=== PATIENT | male | born 1970 | race African-American/Black ===

== ENCOUNTER 2022-06-30 17:17 | Emergency (ER) | payer MEDICAID, SELFPAY ==
--- NOTE | ~2022-06-30 | XR_ITS ---
EXAMINATION: XR CHEST CLINICAL INFORMATION: Fall onto chest. Chest pain. COMPARISON: None available. TECHNIQUE: Frontal view of the chest was obtained. FINDINGS: The lungs are well expanded. There is no focal consolidation, edema, or effusion. No pneumothorax. The cardiomediastinal silhouette is within normal limits. No acute osseous abnormality. XR/XR chest 1V IMPRESSION: No acute pulmonary disease. No displaced fractures are seen.
--- NOTE | ~2022-06-30 | CT_ITS ---
EXAMINATION: NONCONTRAST HEAD CT NONCONTRAST MAXILLOFACIAL CT NONCONTRAST CERVICAL SPINE CT INDICATION INFORMATION: Pain after fall, hitting head. Fall onto face. COMPARISON: None TECHNIQUE: Separate noncontrast CT examinations of the head, maxillofacial bones, and cervical spine were performed. Coronal and sagittal images were created for each examination at the technologist workstation. This CT examination was performed using dose optimization techniques as appropriate, variously including the following: *Automated exposure control *Adjustment of mA and/or kV according to patient size (this includes techniques or standardized protocols for targeted exams where dose is matched to indication/reason for exam; i.e. extremities or head) *Use of iterative reconstruction technique DLP: 1467 mGy-cm FINDINGS: Head: There is no evidence of acute intracranial hemorrhage or territorial infarction. No abnormal mass effect or midline shift is seen. Rodriguez to white matter differentiation is well preserved. No extra-axial fluid collections are identified. No hydrocephalus. Proportional prominence of the ventricles and sulcal spaces is consistent with mild volume loss. Patchy periventricular and deep white matter hypoattenuation is consistent with mild small vessel ischemic changes. Mild left supraorbital soft tissue swelling. No calvarial fracture. The mastoid air cells are well aerated. Maxillofacial: No acute maxillofacial fractures are seen. The pterygoid plates are intact. Lamina papyracea are intact. The zygomatic arches are intact. The nasal bone is intact. The orbital rims are intact. Moderate opacification of the right maxillary sinus. Mucous retention cyst in the left maxillary sinus. There are numerous dental caries with periapical lucency surrounding multiple teeth. Disruption of the alveolar ridge of the left aspect of the mandible associated with the premolars. There is also significant irregularity surrounding the bilateral maxillary molars. There is likely a sebaceous cyst in the subcutaneous tissues of the left base measuring 1.8 cm. The uncinate process is normal bilaterally. The infundibula and middle meati are patent. The nasal septum is midline. The mandibular heads are well-seated in the condylar fossa. The orbits demonstrate a normal appearance bilaterally. The globes are intact, and there are no suspicious findings to suggest retrobulbar hemorrhage. Cervical spine: There is anatomic alignment of the vertebral bodies and posterior elements. The atlantoaxial and atlantooccipital articulations are intact. Vertebral body heights are maintained. There is multilevel intervertebral disc space narrowing with endplate osteophyte formation and facet arthropathy. No evidence of acute fracture. No prevertebral soft tissue swelling. Visualized portions of the lung apices are unremarkable. The thyroid gland is unremarkable. CT/CT cervical spine wo IV con IMPRESSION: 1. No acute intracranial finding. 2. No acute fracture or malalignment of the cervical spine. Mild degenerative change. 3. No acute maxillofacial fracture. Extensive dental caries with periapical lucencies. Disruption of the alveolar ridge of the left aspect of the mandible associated with the premolars. Consider dental evaluation.
[2022-06-30 17:31] VITALS: BP 123/77; PULSE 90
--- NOTE | 2022-06-30 17:31 | ED_ITS ---
HPI - General Adult General Chief complaint: Fall Stated complaint: TRIP AND FALL Time Seen by Provider: 06/30/22 19:57 Source: patient Mode of arrival: ambulatory Limitations: other (intoxicated, uncooperative ) History of Present Illness HPI narrative: 51 year old male presents from EMS for evaluation of fall w/ a/c laceration to lips per EMS. However he tells me he is really here because he would like transport [place] , he doesnt want medical care. He tells me patient access told him if he came her we would just find him a ride home. Tells me he has had two beers all day. Tells me he was in this [place] to buy [place] boots and he tripped on the curb because his boots were too heavy fell hit his face, reports no LOC and was ambulatory after. Related Data Allergies Allergy/AdvReac Type Severity Reaction Status Date / Time acetaminophen [From Vicodin] Allergy Unknown Unknown Verified 06/30/22 17:23 hydrocodone [From Vicodin] Allergy Unknown Unknown Verified 06/30/22 17:23 ketamine Allergy Unknown UNNOWN Verified 06/30/22 17:23 midazolam Allergy UNKNOWN Unverified 06/30/22 17:23 Review of Systems Review of Systems: Constitutional : No Weight loss, No Fever, No Chills, No Fatigue, No Malaise ENT/Mouth : No sore throat, No Rhinorrhea Eyes: No Eye Pain, No Swelling, No Redness Cardiovascular : No Chest Pain, No SOB, No Dyspnea on Exertion, No Orthopnea, No Edema, No Palpitations Respiratory : No Cough, No Sputum, No Wheezing Gastrointestinal : No Nausea, No Vomiting, No Diarrhea, No Constipation, No abdominal Pain, No Hematochezia, No Melena Genitourinary : No Dysuria, No Urinary Frequency, No Hematuria, Musculoskeletal : No joint pain, No Myalgias, No Joint Swelling Skin : No Skin Lesions, No rash, + laceration on lip Neuro : No Weakness, No Numbness, No Dizziness, No Headache Psych : No Anxiety/Panic, No Depression All other systems reviewed and are negative Yes all other systems are reviewed and are negative [facility] Past Medical History Attestation statement: The following information was validated with the patient. Source: old records reviewed and nursing notes reviewed Social History Social History Advance Directives: No Advance Directives Information Provided: No Physical Exam ED Vital Signs: Vital Signs - 24 hr 06/30/22 17:32 06/30/22 23:02 Temperature 97.8 F 98 F Pulse Rate 92 85 Respiratory Rate 18 14 Blood Pressure 116/82 115/79 Pulse Oximetry 97 93 Oxygen Delivery Method Room Air Room Air BMI result Body Mass Index 25.8 vss Appearance: Alert.? Oriented X3.? No acute distress.? Head: Normocephalic, atraumatic, no step-offs or deformities Eyes: Pupils equal, round and reactive to light.? Mouth: Poor dentition throughout,1 cm laceration to both upper and lower lip. With swelling of the left lateral aspect of lip (appears to be healing) Neck: Normal inspection.? Neck supple.? CVS: Normal heart rate and rhythm.? Pulses normal.? Respiratory: No respiratory distress.? Breath sounds normal.? Abdomen: Soft and nontender.? Skin: Skin warm and dry.? Normal skin color.? Normal skin turgor.? Extremities: No lower extremity edema.? No calf ttp. 5/5 strength to bilateral upper and lower extremities Neuro: Oriented X 3.? No motor deficit.? No sensory deficit. CN 2-12 intact Course Reevaluation(s) Reevaluation #1: Patient adamantly refusing everything including sutures, laboratory studies, chest x-ray, head CT and CT of the neck and facial bones. Patient ambulating with steady gait. He continues to tell me that the only reason he is here is for us to give him transferred back to [place]. Patient uncooperative. Time: 18:23 Reevaluation #2: CBC hemolyzed. Patient refusing repeat labs. Chemistry unremarkable. UA without infection. Urine toxicology positive for benzodiazepines, marijuana. Ethanol level of 274. COVID negative. CT of the head with no acute intracranial findings. No acute fracture malalignment of the cervical spine. Degenerative changes noted. No acute maxillofacial fracture. Extensive dental caries with periapical lucencies. Disruption of the alveolar ridge of the left aspect of mandible associated with premolars. Patient should be seen by dentist. Time: 23:57 Reevaluation #3: Patient comfortably resting. Patient will be placed into observation to allow more time to be evaluated by the strength and conditioning coach is for alcohol use disorder. Patient was not making any suicidal or homicidal ideations. No need for Section 12. Will continue to monitor. Patient did refuse sutures. Time: 23:58 Medical Decision Making Medical Decision Making [facility] Narrative: [id number] 51-year-old male presents via ambulance requesting a ride back home, tells me he fell but does not want medical treatment. He did sustain a fall to his lip after fall. Tells me he is not on blood thinners however has been drinking today. Physical exam with1 cm laceration to both upper and lower lip. With swelling of the left lateral aspect of lip Concerns for possible intracranial hemorrhage, facial fractures, trauma to head/scalp. Will rule out electrolyte disturbances, dysrhythmia Will obtain ethanol level and urine toxicology Plan labs, imaging, EKG, urine. Differential Diagnosis Differential Diagnoses: The differential diagnosis associated with the presentation includes Concerns for possible intracranial hemorrhage, facial fractures, trauma to head/scalp. Will rule out electrolyte disturbances, dysrhythmia Will obtain ethanol level and urine toxicology Admission/Observation Consideration of admission/observation: Escalation of care including admission/ observation considered unlikely Lab Data [facility] Lab Attestation statement: I reviewed the patient's lab results. 06/30/22 22:26 06/30/22 22:26 Labs: Lab Results 06/30/22 06/30/22 06/30/22 Range/Units 22:26 22:26 22:26 Sodium 137 (135-145) mmol/L Potassium 4.9 (3.3-5.1) mmol/L Chloride 100 (96-108) mmol/L Carbon Dioxide 25 (22-29) mmol/L Anion Gap 17 (12-20) BUN 5 L (9-16) mg/dL Creatinine 0.84 (0.5-1.4) mg/dL Estim Creat Clear Calc 93.8 Estimated GFR > 60 Random Glucose 83 (60-115) mg/dL Calcium 9.0 (8.4-10.2) mg/dL Magnesium 2.1 (1.6-2.6) mg/dL Total Bilirubin 0.3 (0.0-1.0) mg/dL AST 42 H (5-37) U/L ALT 27 (0-40) U/L Alkaline Phosphatase 84 (39-117) U/L Total Protein 8.1 H (6.5-8.0) g/dL Albumin 4.3 (3.5-5.0) g/dL Urine Color Urine Appearance Urine pH (5.0-9.0) Ur Specific [place] (1.005-1.025) Urine Protein (Neg-Trace) mg/dL Urine Glucose (UA) (Negative) mg/dL Urine Ketones (Negative) mg/dL Urine Blood (Negative) Urine Nitrite (Negative) Ur Leukocyte Esterase (Negative) Urine Opiates Screen (Not Detect) Urine Fentanyl Screen (Not Detect) Ur Barbiturates Screen (Not Detect) Ur Phencyclidine Scrn (Not Detect) Ur Amphetamines Screen (Not Detect) U Benzodiazepines Scrn (Not Detect) Urine Cocaine Screen (Not Detect) U Marijuana (THC) Screen (Not Detect) Ethyl Alcohol 274 mg/dL COVID-19 (DAVID) Negative (Negative) COVID-19 Clin Com See Note 06/30/22 06/30/22 Range/Units 22:26 22:26 Sodium (135-145) mmol/L Potassium (3.3-5.1) mmol/L Chloride (96-108) mmol/L Carbon Dioxide (22-29) mmol/L Anion Gap (12-20) BUN (9-16) mg/dL Creatinine (0.5-1.4) mg/dL Estim Creat Clear Calc Estimated GFR Random Glucose (60-115) mg/dL Calcium (8.4-10.2) mg/dL Magnesium (1.6-2.6) mg/dL Total Bilirubin (0.0-1.0) mg/dL AST (5-37) U/L ALT (0-40) U/L Alkaline Phosphatase (39-117) U/L Total Protein (6.5-8.0) g/dL Albumin (3.5-5.0) g/dL Urine Color Yellow Urine Appearance Clear Urine pH 5.5 (5.0-9.0) Ur Specific [place] <= 1.005 (1.005-1.025) Urine Protein Negative (Neg-Trace) mg/dL Urine Glucose (UA) Negative (Negative) mg/dL Urine Ketones Negative (Negative) mg/dL Urine Blood Negative (Negative) Urine Nitrite Negative (Negative) Ur Leukocyte Esterase Negative (Negative) Urine Opiates Screen Not Detected (Not Detect) Urine Fentanyl Screen Not Detected (Not Detect) Ur Barbiturates Screen Not Detected (Not Detect) Ur Phencyclidine Scrn Not Detected (Not Detect) Ur Amphetamines Screen Not Detected (Not Detect) U Benzodiazepines Scrn POSITIVE H (Not Detect) Urine Cocaine Screen Not Detected (Not Detect) U Marijuana (THC) Screen POSITIVE H (Not Detect) Ethyl Alcohol mg/dL COVID-19 (DAVID) (Negative) COVID-19 Clin Com Core Measures AMI core measures followed: Yes Measure exclusions: not indicated Critical Care Time Critical Care Time Critical Care Time: No Discharge Plan Discharge Clinical Impression: Concussion without loss of consciousness, Fall, Alcohol intoxication, Laceration of lip Patient Disposition: Home, Self-Care Instructions: Alcohol Intoxication (ED), Against Medical Advice (ED), Fall Prevention (ED) Additional Instructions: Take your medications as prescribed. If you were prescribed antibiotics today, it is important that you take your medication to their entirety, do not skip any doses, do not finish them early. Follow-up with your primary care provider this week. Return to the emergency department with new or worsening symptoms. In case of emergency call 911 You refused stitches on lip. Please follow up with a dentist CT/CT head/brain , cervival spine, facial bones wo IV con IMPRESSION: 1.? No acute intracranial finding. 2.? No acute fracture or malalignment of the cervical spine. Mild degenerative change. 3.? No acute maxillofacial fracture. Extensive dental caries with periapical lucencies. Disruption of the alveolar ridge of the left aspect of the mandible associated with the premolars. Consider dental evaluation. Referrals: Physician,Fahad J [Primary Care Provider] - 2 days Stand Alone Forms: Against Medical Advice
[2022-06-30 17:32] VITALS: BP 116/82; PULSE 92; RESP 18; TEMP 36.6; O2SAT 97; BMI 25.8
--- NOTE | 2022-06-30 17:53 | PC.NURSE ---
patient refusing blood work. ED provider aware
--- NOTE | 2022-06-30 20:36 | PC.NURSE ---
this rn assumed care of pt @ 1900. pt continues to refuse all care; imaging, lab work, and VS. anahy garcia made aware
[2022-06-30 22:33] LABS: MANUAL DIFF FLAG NO
[2022-06-30 22:36] LABS: Appearance Urine Clear; Color Urine Yellow; Glucose Urine UA Negative (Negative); Leukocyte Esterase Urine Negative (Negative); Nitrite Urine Negative (Negative); PH 5.5 (5.0-9.0); Specific Gravity - Urine <= 1.005 (1.005-1.025); Urine Blood Negative (Negative); Urine Ketones Negative (Negative); Urine Protein Negative (Neg-Trace)
--- NOTE | 2022-06-30 22:48 | PC.NURSE ---
pt compliant with imaging, blood work, and urine at this time. pt provided with sandwich and water. anahy garcia made aware of pt compliance at this time
[2022-06-30 22:50] LABS: Ethanol 274 mg/dL
[2022-06-30 22:52] LABS: Alanine Aminotransferase 27 U/L (0-40); Albumin Level 4.3 g/dL (3.5-5.0); Alkaline Phosphatase 84 U/L (39-117); Anion Gap 17 (12-20); Aspartate Amino Transferase 42 U/L (5-37); Bilirubin Total 0.3 mg/dL (0.0-1.0); Blood Urea Nitrogen 5 mg/dL (9-16); Carbon Dioxide 25 mmol/L (22-29); Chloride 100 mmol/L (96-108); Creatinine Clr Calc Pharmacy 93.8; Estimated Glomerular Filt Rate > 60; Glucose Random 83 mg/dL (60-115); Magnesium 2.1 mg/dL (1.6-2.6); Potassium 4.9 mmol/L (3.3-5.1); Sodium 137 mmol/L (135-145); Total Protein 8.1 g/dL (6.5-8.0)
[2022-06-30 22:54] LABS: COVID-19 Test Negative (Negative); IDNOW Serial# 55D5AD1C
[2022-06-30 23:02] VITALS: BP 115/79; PULSE 85; RESP 14; TEMP 36.6; O2SAT 93
[2022-06-30 23:06] LABS: Amphetamine Screen Urine Not Detected (Not Detect); Barbiturates, Urine Not Detected (Not Detect); Benzodiazepines Screen Urine POSITIVE (Not Detect); Cannabinoid Screen Urine POSITIVE (Not Detect); Cocaine Screen Urine Not Detected (Not Detect); Fentanyl, urine Not Detected (Not Detect); Opiate Screen Urine Not Detected (Not Detect); Phencyclidine Screen Urine Not Detected (Not Detect)
--- NOTE | 2022-07-01 00:06 | MHC.EDTECH ---
Pt refused EKG, states he does not like being touched
[2022-07-01 01:29] LABS: Basophils Absolute Auto 0.1 X10*3/uL (0.0-0.2); Basophils Percent Auto 1.3 % (0-2); Eosinophils Absolute Auto 0.2 X10*3/uL (0.0-0.4); Eosinophils Percent Auto 3.1 % (0-4); Hematocrit 35.8 % (42.0-52.0); Hemoglobin 12.2 g/dl (14.0-18.0); Imm Gran Abs Auto 0.02 X10*3/uL (0.00-0.03); Imm Gran Pct Auto 0.3 % (0.0-0.4); Lymphocytes Absolute Auto 3.7 X10*3/uL (1.2-4.9); Lymphocytes Percent Auto 54.7 % (20-40); Mean Corpuscular HGB Conc 34.1 g/dl (31.0-36.0); Mean Corpuscular Hemoglobin 28.4 pg (27.0-33.0); Mean Corpuscular Volume 83.4 fL (80.0-98.0); Mean Platelet Volume 10.7 fL (9.4-12.4); Monocytes Absolute Auto 0.3 X10*3/uL (0.1-1.2); Neutrophils Absolute Auto 2.4 x10*3/uL (2.0-8.3); Neutrophils Percent Auto 35.6 % (45-73); Platelet Count 249 X10*3/uL (160-400); Red Blood Count 4.29 X10*6/uL (4.60-5.80); Red Cell Distribution Width 18.4 % (11.0-16.0); White Blood Count 6.8 X10*3/uL (4.8-10.8)
--- NOTE | 2022-07-01 01:53 | PC.NURSE ---
pt sleeping on stretcher at this time. pt snoring. chest rise and fall noted
[2022-07-01] MEDS: clonazePAM 1 MG TABLET PO (03:41)
[2022-07-01] MEDS: Melatonin 3 MG TABLET 9 MG PO (03:41)
--- NOTE | 2022-07-01 03:46 | PC.NURSE ---
pt medicated according to jun. pt refused haldol and asa. pt calm and cooperative. resting on L side on stretcher at this time
--- NOTE | 2022-07-01 06:44 | PC.NURSE ---
pt refused final set of vital signs prior to discharge. pt provided with two bus passes at discharge
--- NOTE | 2022-07-01 06:55 | PC.NURSE ---
pt provided with discharge packet. pt verbalized understanding of discharge plan. pt assisted with carrying belongings out to waiting room. gait steady at discharge. pt refused vs
== END 2022-07-01 06:56 | disposition home or self-care (01) ==
PROVIDERS: Physician Assistant; Emergency Provider Emergency Medicine
DX: S06.0X0A Concussion without loss of consciousness, initial encounter (principal); S01.511A Laceration without foreign body of lip, initial encounter; F10.129 Alcohol abuse with intoxication, unspecified; R51.9 Headache, unspecified; Y90.8 Blood alcohol level of 240 mg/100 ml or more; W01.0XXA Fall on same level from slipping, tripping and stumbling without subsequent striking against object, initial encounter; Y93.9 Activity, unspecified; Y92.480 Sidewalk as the place of occurrence of the external cause; Y99.9 Unspecified external cause status; Z20.822 Contact with and (suspected) exposure to COVID-19; Z20.828 Contact with and (suspected) exposure to other viral communicable diseases; Z79.899 Other long term (current) drug therapy
CPT/HCPCS: 36415; 70450; 70486; 71045; 72125; 80053; 80307; 81003; 82077; 83735; 85025; 87635; 99284